=== PATIENT | female | born 1955 | race Caucasian/White ===

== ENCOUNTER 2025-03-09 10:55 | Inpatient (IN) | payer MEDICAID ==
[~2025-03-09] VITALS: Ht 162.6 cm; Wt 83.1 kg
[2025-03-09] MEDS ORDERED: OLME20TA73 PO (11:21)
[2025-03-09] MEDS ORDERED: METF-1211 PO (11:21)
[2025-03-09 15:17] LABS: ANION GAP 6 mmol/L (8-16); CALCIUM, TOTAL 9.4 mg/dL (8.8-10.5); CARBON DIOXIDE 30 mmol/L (22-29); CHLORIDE 103 mmol/L (98-107); CREATININE 0.76 mg/dL (0.60-1.30); GLOMERULAR FILTR. RATE CALC > 60 mL/min (>60); GLUCOSE,RANDOM 115 mg/dL (70-110); POTASSIUM 4.5 mmol/L (3.5-5.1); SODIUM SERUM 139 mmol/L (136-145); UREA NITROGEN, BLOOD 15 mg/dL (7-18)
[2025-03-09 15:20] LABS: BASOPHILS % (AUTO) 0.5 % (0.0-2.0); EOSINOPHILS % (AUTO) 0.2 % (1.0-6.0); HEMATOCRIT 36.8 % (36-46); HEMOGLOBIN 12.2 g/dL (12.0-16.0); LYMPHOCYTES % (AUTO) 13.2 % (22.0-44.0); MEAN CORPUSCULAR HEMOGLOBIN 25.5 pg (26.0-34.0); MEAN CORPUSCULAR HGB CONC 33.1 G/dL (31.0-37.0); MEAN CORPUSCULAR VOLUME 77 fL (80-100); MONOCYTES # (AUTO) 0.8 K/uL (0.1-1.0); MONOCYTES % (AUTO) 5.4 % (2.0-9.0); NEUTROPHILS # (AUTO) 12.1 K/uL (1.8-7.7); NEUTROPHILS % (AUTO) 80.7 % (40.0-70.0); PLATELET COUNT (AUTO) 350 K/uL (150-450); RED BLOOD CELL COUNT(AUTO) 4.77 MIL/uL (4.00-5.20)
[2025-03-09 15:26] LABS: TROPONIN I-HIGH SENSITIVITY 5 ng/L (<51)
[2025-03-09 16:27] LABS: LACTIC ACID 1.3 mmol/L (0.4-2.0)
[2025-03-09] MEDS: SODIUM CHLORIDE 0.9% 1,000 ML IV ONE (17:09)
[2025-03-09] MEDS: PIPERACILLIN/TAZO 3.375 GM/D5W 50 ML IV ONE (17:09)
[2025-03-09] MEDS ORDERED: HYDROCODONE/ACETAMINOPHEN 5-325 MG TABLET PO PRN (17:15)
[2025-03-09] MEDS ORDERED: MAGNESIUM HYDROXIDE SUSPENSION 30 ML UDCUP PO PRN (17:15)
[2025-03-09] MEDS ORDERED: ACETAMINOPHEN 325 MG TABLET PO PRN (17:15)
[2025-03-09] MEDS ORDERED: ONDANSETRON HCL 4 MG/2 ML VIAL IVP PRN (17:15)
[2025-03-09] MEDS ORDERED: BISACODYL 10 MG RECTAL RECTAL SUPPOSITORY PR PRN (17:15)
[2025-03-09] MEDS ORDERED: MORPHINE SULFATE 2 MG/ML SYRINGE IVP PRN (17:15)
[2025-03-09] MEDS ORDERED: ZOLPIDEM TARTRATE 5 MG TABLET PO PRN (17:15)
[2025-03-09 17:22] VITALS: O2SAT 98
[2025-03-09] MEDS: MetFORMIN HCL 500 MG TABLET PO SCH (17:30)
[2025-03-09] MEDS ORDERED: GADOTERATE MEGLUMINE 10 MMOL/20 ML VIAL IVP ONE (17:37)
[2025-03-09 21:05] VITALS: BP 149/70; PULSE 74; RESP 18; TEMP 98.6; O2SAT 99
[2025-03-09] MEDS: DOCUSATE SODIUM 100 MG CAPSULE PO SCH (21:56)
[2025-03-10] MEDS ORDERED: SODIUM CHLORIDE 0.9% 500 ML IV ONE
[2025-03-10] MEDS: HEPARIN SODIUM,PORCINE 5,000 UNITS/ML VIAL SQ SCH (00:04)
[2025-03-10] MEDS: PIPERACILLIN/TAZO 3.375 GM/D5W 50 ML IV SCH (00:05)
[2025-03-10 03:15] VITALS: BP 118/55; PULSE 71; RESP 18; TEMP 98.1; O2SAT 97
[2025-03-10] MEDS: PANTOPRAZOLE SODIUM 40 MG DR TABLET PO SCH (08:37)
[2025-03-10 08:39] VITALS: BP 126/62; PULSE 73; RESP 18; TEMP 98.1; O2SAT 97
[2025-03-10 09:53] LABS: APPEARANCE,URINE CLEAR (CLEAR); BILIRUBIN,URINE NEGATIVE (NEGATIVE); COLOR,URINE COLORLESS (YELLOW); GLUCOSE, URINE (UA) NEGATIVE (NEGATIVE); KETONES,URINE NEGATIVE (NEGATIVE); LEUKOCYTE ESTERASE ,URINE TRACE (NEGATIVE); NITRATE,URINE NEGATIVE (NEGATIVE); OCCULT BLOOD,URINE NEGATIVE (NEGATIVE); PH,URINE 6.5 (5.0-8.0); PROTEIN,URINE NEGATIVE (NEGATIVE); SPECIFIC GRAVITIY, URINE 1.004 (1.003-1.030); UROBILINOGEN,URINE <=1.0 mg/dL (<=1.0)
[2025-03-10 10:00] LABS: BACTERIA,URINE None Seen /HPF (None Seen); RBC,URINE None Seen /HPF (0-2); SQUAMOUS EPITHELIAL CELL,UR Rare /LPF (None Seen); WBC,URINE 0-2 /HPF (0-5)
[2025-03-10 13:06] LABS: GLUCOMETER DEV NAME(LOC) 6S.1D; GLUCOSE,POINT OF CARE 190 MG/DL (70-110)
[2025-03-10 13:16] LABS: GLUCOMETER DEV NAME(LOC) 6S.2; GLUCOSE,POINT OF CARE 192 MG/DL (70-110)
[2025-03-10 16:16] VITALS: BP 143/75; PULSE 75; RESP 20; TEMP 97.9; O2SAT 99
[2025-03-10 20:08] VITALS: BP 143/74; PULSE 75; RESP 20; TEMP 97.9; O2SAT 98
[2025-03-10] MEDS: FLUTICASONE PROPIONATE 50 MCG/SPRAY 16 GM NASAL SPRAY NASAL SCH (21:26)
[2025-03-11 04:45] VITALS: BP 149/73; PULSE 79; RESP 19; TEMP 98.4; O2SAT 97
[2025-03-11 08:02] LABS: BASOPHILS % (AUTO) 0.5 % (0.0-2.0); EOSINOPHILS % (AUTO) 1.3 % (1.0-6.0); HEMOGLOBIN 13.6 g/dL (12.0-16.0); LYMPHOCYTES # (AUTO) 1.8 K/uL (1.0-4.8); LYMPHOCYTES % (AUTO) 26.3 % (22.0-44.0); MEAN CORPUSCULAR HEMOGLOBIN 27.7 pg (26.0-34.0); MEAN CORPUSCULAR HGB CONC 33.9 G/dL (31.0-37.0); MEAN CORPUSCULAR VOLUME 82 fL (80-100); MONOCYTES # (AUTO) 0.4 K/uL (0.1-1.0); MONOCYTES % (AUTO) 6.2 % (2.0-9.0); NEUTROPHILS # (AUTO) 4.4 K/uL (1.8-7.7); NEUTROPHILS % (AUTO) 65.7 % (40.0-70.0); PLATELET COUNT (AUTO) 197 K/uL (150-450); RED BLOOD CELL COUNT(AUTO) 4.89 MIL/uL (4.00-5.20); RED CELL DISTRIBUTION WIDTH 14.1 % (11.5-14.5); WHITE BLOOD COUNT (AUTO) 6.7 K/uL (4.5-11.0)
[2025-03-11 08:22] LABS: ANION GAP 8 mmol/L (8-16); CALCIUM, TOTAL 9.3 mg/dL (8.8-10.5); CARBON DIOXIDE 28 mmol/L (22-29); CHLORIDE 104 mmol/L (98-107); CREATININE 0.91 mg/dL (0.60-1.30); GLOMERULAR FILTR. RATE CALC > 60 mL/min (>60); GLUCOSE,RANDOM 186 mg/dL (70-110); POTASSIUM 4.6 mmol/L (3.5-5.1); SODIUM SERUM 140 mmol/L (136-145); UREA NITROGEN, BLOOD 10 mg/dL (7-18)
[2025-03-11 08:59] VITALS: BP 121/73; PULSE 77; RESP 20; TEMP 97.5; O2SAT 97
[2025-03-11] MEDS ORDERED: AMOX-457 PO (10:12)
== END 2025-03-11 13:40 | disposition home or self-care (01) | DRG 113 ==
LOC: EMS 11:05 → EDH 18:24 → 4E 20:52 → 6S 21:00 → 4E 03-10 19:47
PROVIDERS: ADMIT Internal Medicine; ATTEND Internal Medicine
DX: H70.93 Unspecified mastoiditis, bilateral (principal); E11.319 Type 2 diabetes mellitus with unspecified diabetic retinopathy without macular edema; I10 Essential (primary) hypertension; J32.0 Chronic maxillary sinusitis; H53.8 Other visual disturbances; Z79.4 Long term (current) use of insulin
CPT/HCPCS: 70450; 70553; 71045; 80048; 81001; 82962; 83605; 83880; 84484; 85025; 85651; 87040; 93005; 96365; 99285; G0378; J1644; J2543; J7030; J7040; 36415-L1; 36415-TC

== ENCOUNTER 2025-09-12 13:39 | Emergency (ER) | payer SELFPAY ==
[~2025-09-12] VITALS: Ht 162.6 cm; Wt 81.0 kg
[~2025-09-12 13:39] MED LIST: AMOX-457 PO; METF-1211 PO; OLME20TA73 PO
[2025-09-12 14:00] VITALS: BP 149/74; PULSE 82; RESP 18; TEMP 98.1; O2SAT 99
[2025-09-12] MEDS ORDERED: TRAM50TA5 PO (18:21)
== END 2025-09-12 18:59 | disposition home or self-care (01) ==
LOC: EMS 13:39
DX: S62.325A Displaced fracture of shaft of fourth metacarpal bone, left hand, initial encounter for closed fracture (principal); E11.9 Type 2 diabetes mellitus without complications; I10 Essential (primary) hypertension; Z79.899 Other long term (current) drug therapy; W19.XXXA Unspecified fall, initial encounter; Y93.89 Activity, other specified; Y92.89 Other specified places as the place of occurrence of the external cause; Y99.8 Other external cause status
CPT/HCPCS: 99283